=== PATIENT | male | born 1990 | race Caucasian/White ===

== ENCOUNTER 2017-07-02 16:01 | Inpatient (IN) | payer OTHER ==
[2017-07-02] MEDS: ONDANSETRON 4 MG INJ IV (17:09)
[2017-07-02] MEDS: morphine 4 MG/ML VIAL IV (17:09)
[2017-07-02 17:24] LABS: ADD MAN DIFF? NO
[2017-07-02 17:26] LABS: BASOPHIL # 0.1 10^3/ul (0.0-0.1); BASOPHILS % 0.4 % (0.0-2.0); EOSINOPHILS # 0.1 10^3/ul (0.0-0.5); EOSINOPHILS % 0.7 % (0.0-7.0); HEMATOCRIT 46.2 % (42.0-52.0); HEMOGLOBIN 16.1 g/dl (14.0-18.0); LYMPHOCYTES # 2.4 10^3/ul (0.8-2.9); MEAN CORPUSCULAR HEMOGLOBIN 29.5 pg (29.0-33.0); MEAN CORPUSCULAR HGB CONC 34.8 g/dl (32.0-37.0); MEAN CORPUSCULAR VOLUME 84.8 fl (82.0-101.0); MEAN PLATELET VOLUME 10.2 fl (7.4-10.4); MONOCYTE # 0.8 10^3/ul (0.3-0.9); MONOCYTES % 4.5 % (0.0-11.0); NEUTROPHIL # 13.5 10^3/ul (1.6-7.5); NEUTROPHILS % 79.9 % (39.0-77.0); PLATELET COUNT 327 10^3/UL (140-415); RED BLOOD COUNT 5.45 10^6/ul (4.70-6.10); RED CELL DISTRIBUTION WIDTH 12.4 % (11.5-14.5)
[2017-07-02 17:26] LABS: WHITE BLOOD COUNT 16.8 10^3/ul (4.8-10.8)
[2017-07-02 17:54] LABS: ALANINE AMINOTRANSFERASE 117 IU/L (13-69); ALBUMIN 5.1 g/dl (3.3-4.9); ALBUMIN/GLOBULIN RATIO 1.34; ALKALINE PHOSPHATASE 79 IU/L (42-121); ANION GAP 20 (8-16); ASPARTATE AMINO TRANSFERASE 54 IU/L (15-46); BILIRUBIN,INDIRECT 0.6 mg/dl (0-1.1); BILIRUBIN,TOTAL 0.6 mg/dl (0.2-1.3); BLOOD UREA NITROGEN 11 mg/dl (7-20); CALCIUM 10.1 mg/dl (8.4-10.2); CARBON DIOXIDE 25 mmol/L (21-31); CHLORIDE 103 mmol/L (97-110); GLUCOSE 88 mg/dl (70-220); LIPASE 105 U/L (23-300); POTASSIUM 4.3 mmol/L (3.5-5.1); SODIUM 144 mmol/L (135-144); TOTAL PROTEIN 8.9 g/dl (6.1-8.1)
[2017-07-02 18:04] LABS: ADD UMIC NO; UR ASCORBIC ACID NEGATIVE (NEGATIVE); UR BILIRUBIN (Dip) NEGATIVE (NEGATIVE); UR BLOOD (Dip) NEGATIVE (NEGATIVE); UR CLARITY CLEAR (CLEAR); UR COLOR YELLOW (YELLOW); UR GLUCOSE (Dip) NEGATIVE (NEGATIVE); UR KETONES (Dip) NEGATIVE (NEGATIVE); UR LEUKOCYTE ESTERASE (Dip) NEGATIVE Leu/ul (NEGATIVE); UR NITRITE (Dip) NEGATIVE (NEGATIVE); UR TOTAL PROTEIN (Dip) NEGATIVE (NEGATIVE); UR UROBILINOGEN (Dip) NEGATIVE (NEGATIVE)
[2017-07-02] MEDS: SOD CHLORIDE 0.9% 1,000 ML IV ×2 (19:09→19:43)
[2017-07-02] MEDS: PIPER-TAZO 3.375 GM IV (PMX) 100 ML IVPB (19:09)
[2017-07-02 19:52] LABS: INR 0.95; PROTIME 12.8 Sec (11.9-14.9)
[2017-07-02 19:53] LABS: PARTIAL THROMBOPLASTIN TIME 27.2 Sec (25.0-35.0)
[2017-07-02] MEDS ORDERED: morphine 2 MG INJ IV (23:30)
[2017-07-02] MEDS ORDERED: ONDANSETRON 4 MG INJ IV (23:30)
[2017-07-02] MEDS: DEXTROSE 5%-0.45% NACL 1,000 ML IV (23:50)
[2017-07-03] MEDS: morphine 2 MG INJ IV (00:12)
[2017-07-03] MEDS ORDERED: morphine 2 MG INJ IV (03:30)
[2017-07-03] MEDS: PIPER-TAZO 3.375 GM IV (PMX) 100 ML IVPB ×3 (03:57→12:25)
[2017-07-03] MEDS: DEXTROSE 5%-0.45% NACL 1,000 ML IV ×2 (09:30→11:21)
[2017-07-03 10:00] LABS: ADD MAN DIFF? NO
[2017-07-03 10:05] LABS: WHITE BLOOD COUNT 10.7 10^3/ul (4.8-10.8)
[2017-07-03 10:05] LABS: BASOPHILS % 0.4 % (0.0-2.0); EOSINOPHILS # 0.1 10^3/ul (0.0-0.5); EOSINOPHILS % 0.9 % (0.0-7.0); HEMATOCRIT 41.4 % (42.0-52.0); HEMOGLOBIN 14.3 g/dl (14.0-18.0); LYMPHOCYTES % 18.6 % (15.0-51.0); MEAN CORPUSCULAR HEMOGLOBIN 29.4 pg (29.0-33.0); MEAN CORPUSCULAR HGB CONC 34.5 g/dl (32.0-37.0); MEAN CORPUSCULAR VOLUME 85.2 fl (82.0-101.0); MEAN PLATELET VOLUME 10.5 fl (7.4-10.4); MONOCYTE # 0.7 10^3/ul (0.3-0.9); MONOCYTES % 6.4 % (0.0-11.0); NEUTROPHIL # 7.8 10^3/ul (1.6-7.5); PLATELET COUNT 268 10^3/UL (140-415); RED BLOOD COUNT 4.86 10^6/ul (4.70-6.10); RED CELL DISTRIBUTION WIDTH 12.4 % (11.5-14.5)
[2017-07-03 10:22] LABS: LACTIC ACID 1.6 mmol/L (0.5-2.0)
[2017-07-03 10:22] LABS: ANION GAP 17 (8-16); BLOOD UREA NITROGEN 8 mg/dl (7-20); CALCIUM 9.5 mg/dl (8.4-10.2); CARBON DIOXIDE 26 mmol/L (21-31); CHLORIDE 104 mmol/L (97-110); CREATININE 1.18 mg/dl (0.61-1.24); GLUCOSE 110 mg/dl (70-220); POTASSIUM 4.6 mmol/L (3.5-5.1); SODIUM 142 mmol/L (135-144)
[2017-07-03 10:26] LABS: MAGNESIUM 1.9 mg/dl (1.7-2.5)
[2017-07-03 10:26] LABS: PHOSPHORUS 3.5 mg/dl (2.5-4.9)
== END 2017-07-03 18:15 | disposition home or self-care (01) | DRG 395 ==
LOC: MS2 22:45 → FTE 16:01 → MS2 21:32
DX: K35.80 Unspecified acute appendicitis (principal); E66.9 Obesity, unspecified; Z68.32 Body mass index [BMI] 32.0-32.9, adult
CPT/HCPCS: 36415; 74176; 80048; 80053; 81003; 83605; 83690; 83735; 84100; 85025; 85610; 85730; 93005; 96374; 96375; 99285-25

== ENCOUNTER 2018-05-14 00:02 | Inpatient (IN) | payer OTHER ==
[2018-05-14] MEDS: morphine 4 MG/ML VIAL IV ×3 (00:57→09:20)
[2018-05-14] MEDS: ONDANSETRON 4 MG INJ IV ×2 (00:57→07:16)
[2018-05-14] MEDS: SOD CHLORIDE 0.9% 1,000 ML IV ×5 (00:57→14:47)
[2018-05-14 01:05] LABS: ADD MAN DIFF? NO
[2018-05-14 01:11] LABS: BASOPHIL # 0.1 10^3/ul (0.0-0.1); BASOPHILS % 0.5 % (0.0-2.0); EOSINOPHILS # 0.3 10^3/ul (0.0-0.5); EOSINOPHILS % 1.7 % (0.0-7.0); HEMATOCRIT 47.5 % (42.0-52.0); HEMOGLOBIN 16.1 g/dl (14.0-18.0); LYMPHOCYTES # 2.5 10^3/ul (0.8-2.9); LYMPHOCYTES % 16.2 % (15.0-51.0); MEAN CORPUSCULAR HEMOGLOBIN 28.9 pg (29.0-33.0); MEAN CORPUSCULAR HGB CONC 33.9 g/dl (32.0-37.0); MEAN CORPUSCULAR VOLUME 85.1 fl (82.0-101.0); MEAN PLATELET VOLUME 10.4 fl (7.4-10.4); MONOCYTES % 6.3 % (0.0-11.0); NEUTROPHIL # 11.5 10^3/ul (1.6-7.5); NEUTROPHILS % 74.5 % (39.0-77.0); PLATELET COUNT 292 10^3/UL (140-415); RED BLOOD COUNT 5.58 10^6/ul (4.70-6.10); RED CELL DISTRIBUTION WIDTH 12.1 % (11.5-14.5)
[2018-05-14 01:11] LABS: WHITE BLOOD COUNT 15.5 10^3/ul (4.8-10.8)
[2018-05-14 01:27] LABS: ALANINE AMINOTRANSFERASE 105 IU/L (13-69); ALBUMIN 4.9 g/dl (3.3-4.9); ALKALINE PHOSPHATASE 64 IU/L (42-121); ANION GAP 15 (5-13); ASPARTATE AMINO TRANSFERASE 45 IU/L (15-46); BILIRUBIN,INDIRECT 0.4 mg/dl (0-1.1); BILIRUBIN,TOTAL 0.4 mg/dl (0.2-1.3); BLOOD UREA NITROGEN 16 mg/dl (7-20); CARBON DIOXIDE 24 mmol/L (21-31); CHLORIDE 103 mmol/L (97-110); CREATININE 1.06 mg/dl (0.61-1.24); Estimated GFR > 60 mL/min (>60); GLUCOSE 98 mg/dl (70-220); LIPASE 126 U/L (23-300); POTASSIUM 4.2 mmol/L (3.5-5.1); SODIUM 142 mmol/L (135-144); TOTAL PROTEIN 8.4 g/dl (6.1-8.1)
[2018-05-14 01:29] LABS: ADD UMIC NO; UR ASCORBIC ACID NEGATIVE (NEGATIVE); UR BILIRUBIN (Dip) NEGATIVE (NEGATIVE); UR BLOOD (Dip) NEGATIVE (NEGATIVE); UR CLARITY CLEAR (CLEAR); UR COLOR YELLOW (YELLOW); UR GLUCOSE (Dip) NEGATIVE (NEGATIVE); UR KETONES (Dip) NEGATIVE (NEGATIVE); UR LEUKOCYTE ESTERASE (Dip) NEGATIVE Leu/ul (NEGATIVE); UR NITRITE (Dip) NEGATIVE (NEGATIVE); UR SPECIFIC GRAVITY (Dip) 1.024 (1.003-1.030); UR TOTAL PROTEIN (Dip) NEGATIVE (NEGATIVE); UR UROBILINOGEN (Dip) NEGATIVE (NEGATIVE)
[2018-05-14] MEDS ORDERED: BISACODYL (EC) 5 MG TAB PO (02:30)
[2018-05-14] MEDS ORDERED: NACL 0.9% 3 ML SYG IV (02:30)
[2018-05-14] MEDS ORDERED: ACETAMINOPHEN 325 MG TAB PO ×2 (02:30)
[2018-05-14] MEDS ORDERED: DOCUSATE SODIUM 100 MG CAP PO (02:30)
[2018-05-14] MEDS: PIPER-TAZO 3.375 GM IV (PMX) 100 ML IVPB ×4 (02:30→17:43)
[2018-05-14] MEDS ORDERED: morphine 2 MG INJ IV ×2 (02:30→06:30)
[2018-05-14] MEDS ORDERED: ONDANSETRON 4 MG INJ IV ×3 (02:30→07:00)
[2018-05-14 05:18] LABS: INR 0.95; PROTIME 12.8 Sec (11.9-14.9)
[2018-05-14 05:19] LABS: PARTIAL THROMBOPLASTIN TIME 26.6 Sec (23.0-35.0)
[2018-05-14] MEDS ORDERED: SUCCINYLCHOLINE CHLORIDE 100 MG/5 ML SYG IV (05:28)
[2018-05-14] MEDS ORDERED: PROPOFOL 20 ML (05:28)
[2018-05-14] MEDS ORDERED: ROCURONIUM 50 MG INJ (05:28)
[2018-05-14] MEDS ORDERED: HYDROmorphONE 2 MG/ML SYG (05:28)
[2018-05-14] MEDS ORDERED: LABETALOL HCL 20MG INJ IV (05:30)
[2018-05-14] MEDS ORDERED: hydrALAzine 20 MG INJ IV (05:30)
[2018-05-14] MEDS ORDERED: MEPERIDINE 25 MG INJ IV (05:30)
[2018-05-14] MEDS ORDERED: KETOROLAC 15 MG INJ IV (05:30)
[2018-05-14] MEDS ORDERED: DIPHENHYDRAMINE 50 MG INJ IV (05:30)
[2018-05-14] MEDS: BUPIVACAINE 0.5%/EPI (SDV) 30 ML INJ (06:06)
[2018-05-14] MEDS ORDERED: MIDAZOLAM 1 MG/ML 2 ML INJ (06:24)
[2018-05-14] MEDS ORDERED: SUGAMMADEX SODIUM 200 MG/2 ML VIAL IV (06:25)
[2018-05-14] MEDS ORDERED: OXYCODONE/ACETAMINOPHEN (5/325) TAB PO (07:00)
[2018-05-14] MEDS ORDERED: DESFLURANE 15 MIN (07:00)
[2018-05-14] MEDS ORDERED: morphine 4 MG/ML VIAL IV (07:00)
[2018-05-14] MEDS ORDERED: CEFAZOLIN 1 GM INJ (07:00)
[2018-05-14] MEDS ORDERED: HYDROmorphONE 1 MG/5 ML IV SYRINGE IV (07:09)
[2018-05-14] MEDS ORDERED: ONDANSETRON 4 MG INJ (07:09)
[2018-05-14] MEDS: HYDROmorphONE 1 MG/5 ML IV SYRINGE IV ×2 (07:16→07:41)
[2018-05-14] MEDS ORDERED: PIPER-TAZO 3.375 GM IV (PMX) 100 ML (07:22)
[2018-05-14] MEDS: OXYCODONE/ACETAMINOPHEN (5/325) TAB PO ×3 (10:42→18:58)
[2018-05-15] MEDS: PIPER-TAZO 3.375 GM IV (PMX) 100 ML IVPB ×2 (00:26→05:52)
[2018-05-15] MEDS: OXYCODONE/ACETAMINOPHEN (5/325) TAB PO ×2 (00:26→07:37)
[2018-05-15] MEDS: SOD CHLORIDE 0.9% 1,000 ML IV ×2 (00:27→08:01)
[2018-05-15 04:58] LABS: ADD MAN DIFF? NO
[2018-05-15 05:05] LABS: WHITE BLOOD COUNT 8.5 10^3/ul (4.8-10.8)
[2018-05-15 05:05] LABS: BASOPHILS % 0.5 % (0.0-2.0); EOSINOPHILS # 0.2 10^3/ul (0.0-0.5); HEMATOCRIT 38.6 % (42.0-52.0); HEMOGLOBIN 12.9 g/dl (14.0-18.0); LYMPHOCYTES # 2.5 10^3/ul (0.8-2.9); MEAN CORPUSCULAR HEMOGLOBIN 29.3 pg (29.0-33.0); MEAN CORPUSCULAR HGB CONC 33.4 g/dl (32.0-37.0); MEAN CORPUSCULAR VOLUME 87.5 fl (82.0-101.0); MEAN PLATELET VOLUME 10.4 fl (7.4-10.4); MONOCYTE # 0.5 10^3/ul (0.3-0.9); NEUTROPHIL # 5.1 10^3/ul (1.6-7.5); NEUTROPHILS % 60.4 % (39.0-77.0); PLATELET COUNT 207 10^3/UL (140-415); RED BLOOD COUNT 4.41 10^6/ul (4.70-6.10); RED CELL DISTRIBUTION WIDTH 12.3 % (11.5-14.5)
[2018-05-15 05:23] LABS: ALANINE AMINOTRANSFERASE 64 IU/L (13-69); ALBUMIN 3.7 g/dl (3.3-4.9); ALBUMIN/GLOBULIN RATIO 1.23; ALKALINE PHOSPHATASE 45 IU/L (42-121); ANION GAP 11 (5-13); ASPARTATE AMINO TRANSFERASE 27 IU/L (15-46); BILIRUBIN,INDIRECT 0.7 mg/dl (0-1.1); BILIRUBIN,TOTAL 0.7 mg/dl (0.2-1.3); BLOOD UREA NITROGEN 10 mg/dl (7-20); CALCIUM 8.8 mg/dl (8.4-10.2); CARBON DIOXIDE 28 mmol/L (21-31); CHLORIDE 100 mmol/L (97-110); CHOLESTEROL 142 mg/dl (100-200); CREATININE 1.05 mg/dl (0.61-1.24); Estimated GFR > 60 mL/min (>60); GLUCOSE 98 mg/dl (70-220); HDL CHOLESTEROL 47 mg/dl (30-63); LDL CHOLESTEROL,CALCULATED 69 mg/dl; MAGNESIUM 1.9 mg/dl (1.7-2.5); POTASSIUM 4.5 mmol/L (3.5-5.1); SODIUM 139 mmol/L (135-144); TOTAL PROTEIN 6.7 g/dl (6.1-8.1); TRIGLYCERIDES 129 mg/dl (0-149)
[2018-05-15 06:36] LABS: HEMOGLOBIN A1C 5.2 % (0-5.9)
== END 2018-05-15 12:40 | disposition home or self-care (01) | DRG 343 ==
LOC: E/R 00:02 → MS1 02:05
PROC: 0DTJ4ZZ Resection of Appendix, Percutaneous Endoscopic Approach (ICD-10-PCS; principal; 2018-05-14 05:29)
DX: K35.30 Acute appendicitis with localized peritonitis, without perforation or gangrene (principal); E66.9 Obesity, unspecified; Z68.32 Body mass index [BMI] 32.0-32.9, adult; Z71.3 Dietary counseling and surveillance; R11.10 Vomiting, unspecified
CPT/HCPCS: 36415; 74176; 80053; 80061; 81003; 83036; 83605; 83690; 83735; 84443; 85025; 85610; 85730; 87070; 87075; 88304; 96361; 96374; 96375; 99285-25